=== PATIENT | female | born 1970 | race Caucasian/White ===

== ENCOUNTER 2019-07-08 07:37 | Day surgery (SDC) | payer BC ==
[2019-06-28 17:07] VITALS: BMI 33.6
[2019-07-08 10:18] VITALS: PULSE 75
[2019-07-08 10:22] VITALS: BP 105/68; TEMP 98
== END 2019-07-08 10:26 | disposition home or self-care (01) ==
LOC: FASU-ENDO 07:37
PROVIDERS: ATTEND Internal Medicine Gastroenterology
PROC: 0DJD8ZZ Inspection of Lower Intestinal Tract, Via Natural or Artificial Opening Endoscopic (ICD-10-PCS; principal; 2019-07-08 09:15)
DX: K57.30 Diverticulosis of large intestine without perforation or abscess without bleeding (principal); R10.32 Left lower quadrant pain; Z87.19 Personal history of other diseases of the digestive system